=== PATIENT | female | born 1965 | race Caucasian/White ===

== ENCOUNTER → 2018-01-10 | Outpatient (CLI) | payer BC ==
--- NOTE | 2018-01-11 14:42 | MM ---
Reason for exam: screening (asymptomatic). Last mammogram was performed 4 years and 3 months ago. History: Taking hormonal contraceptives beginning at age 19. Physical Findings: A clinical breast exam by your physician is recommended on an annual basis and results should be correlated with mammographic findings. MG Screening Mammo w CAD Bilateral CC and MLO view(s) were taken. Prior study comparison: October 07, 2013, mammogram, performed at [facility]. October 03, 2013, mammogram, performed at [facility]. The breast tissue is heterogeneously dense. This may lower the sensitivity of mammography. Stable benign calcifications. There is no discrete abnormality. No significant changes when compared with prior studies. ASSESSMENT: Benign, BI-RAD 2 RECOMMENDATION: Routine screening mammogram of both breasts in 1 year.
== END | disposition home or self-care (01) ==
LOC: RADMAMWWP 11:47
PROVIDERS: ATTEND Family Medicine
DX: Z12.31 Encounter for screening mammogram for malignant neoplasm of breast (principal)
CPT/HCPCS: 77067

== ENCOUNTER → 2021-08-10 | Outpatient (CLI) | payer OTHER ==
--- NOTE | 2021-08-11 11:13 | MM ---
Reason for Exam: Screening (asymptomatic). Last mammogram was performed 3 year(s) and 7 month(s) ago. Patient History: Menarche at age 13. First Full-Term at age 30. Currently using Hormonal Contraceptives, starting at age 19. Risk Values: Radha 5 year model risk: 1.4%. NCI Lifetime model risk: 10.1%. Prior Study Comparison: 10/03/2013 Screening Mammogram, [facility]. 10/07/2013 Screening Mammogram, [facility]. 01/10/2018 Bilateral Screening Mammogram, [facility]. Tissue Density: The breast tissue is heterogeneously dense. This may lower the sensitivity of mammography. Findings: Analyzed By CAD. A few scattered benign-appearing punctate calcifications redemonstrated throughout both breasts. There is no suspicious group of microcalcifications or new suspicious mass in either breast. Overall Assessment: Benign, BI-RAD 2 Management: Screening Mammogram of both breasts in 1 year. A clinical breast exam by your physician is recommended on an annual basis and results should be correlated with mammographic findings. Electronically signed and approved by: Sai Fishman M.D.
== END | disposition home or self-care (01) ==
LOC: RADMAMWWP 08:05
PROVIDERS: ATTEND Family Medicine
DX: Z12.31 Encounter for screening mammogram for malignant neoplasm of breast (principal)
CPT/HCPCS: 77067

== ENCOUNTER → 2022-08-22 | Outpatient (CLI) | payer OTHER ==
[2022-08-22 20:54] LABS: Basophils # (A) 0.09 X 10*3/uL (0.00-0.10); Basophils % (A) 1.4 %; Eosinophils # (A) 0.19 X 10*3/uL (0.04-0.35); HCT 39.1 % (37.2-46.3); Lymphocytes # (A) 1.88 X 10*3/uL (0.90-5.00); Lymphocytes % (A) 29.4 %; MCHC 30.7 d/dL (32.0-37.0); MCV 91.1 FL (80.0-97.0); Mean Platelet Volume 10.8 FL (9.5-12.2); Monocytes # (A) 0.46 X 10*3/uL (0.20-1.00); Monocytes % (A) 7.2 %; NRBC Per 100 WBC 0 X 10*3/uL (0.00-0.01); Neutrophils # (A) 3.75 X 10*3/uL (1.80-7.70); Neutrophils % (A) 58.7 %; Platelet Count 228 X 10*3/uL (140-440); RBC 4.29 X 10*6/uL (4.10-5.20); RDW 14.1 % (11.5-14.5); WBC 6.39 X 10*3/uL (4.50-10.00)
== END | disposition home or self-care (01) ==
LOC: LABWHC1 12:45
PROVIDERS: ATTEND Obstetrics & Gynecology Obstetrics
DX: Z01.812 Encounter for preprocedural laboratory examination (principal); N92.0 Excessive and frequent menstruation with regular cycle; N92.6 Irregular menstruation, unspecified; D64.9 Anemia, unspecified
CPT/HCPCS: 36415; 85025

== ENCOUNTER 2022-08-25 07:43 | Day surgery (SDC) | payer OTHER ==
[2022-08-22 14:59] VITALS: BMI 31.8
[~2022-08-25 07:43] MED LIST: Pre Op ABX Message 1 EACH MISC MISCELLANE ONE
[2022-08-25] MEDS ORDERED: LACTATED RINGERS 1,000 ML IV SCH (07:49)
[2022-08-25] MEDS ORDERED: MIDAZOLAM 2 MG/2 ML VIAL IV PRN (07:49)
[2022-08-25] MEDS ORDERED: ONDANSETRON 4 MG/2 ML VIAL IVP ONE (07:49)
[2022-08-25] MEDS ORDERED: DEXAMETHASONE SOD PHOSPHATE 4 MG/ML 1 ML VIAL IV ONE (07:49)
[2022-08-25] MEDS ORDERED: SCOPOLAMINE 1 MG/72 HR PATCH TRANSDERM ONE (07:49)
[2022-08-25] MEDS ORDERED: HYDROmorphone 0.5 MG/0.5 ML SYRINGE IVP PRN (07:49)
[2022-08-25] MEDS ORDERED: fentaNYL (PF) 50 MCG/ML 2 ML AMP ONE (08:54)
[2022-08-25] MEDS ORDERED: MIDAZOLAM 2 MG/2 ML VIAL ONE (08:54)
[2022-08-25] MEDS ORDERED: KETOROLAC 15 MG/ML 1 ML VIAL ONE (08:54)
[2022-08-25] MEDS ORDERED: LIDOCAINE 2% INJ 20 MG/ML (2 ML VIAL) ONE (08:54)
[2022-08-25] MEDS ORDERED: PROPOFOL 10 MG/ML 20 ML VIAL IV ONE (08:54)
[2022-08-25 09:41] VITALS: TEMP 98.1
--- NOTE | 2022-08-25 09:41 | P.OP ---
Date of Procedure: 08/25/22 Preoperative Diagnosis: Menorrhagia, anemia Postoperative Diagnosis: Same Procedure(s) Performed: Hysteroscopy, dilation and curettage, endometrial ablation Anesthesia: spinal Surgeon: Debi Beal Estimated Blood Loss (ml): 5 Urine output (ml): 50 Pathology: none sent Condition: stable Disposition: PACU Indications for Procedure: Heavy menstrual bleeding with noted anemia, normal proliferative endometrium noted on endometrial biopsy Operative Findings: Normal uterine cavity was appreciated Description of Procedure: Patient was taken back to the operating suite where general anesthesia was obt ained without difficulty by the anesthesia department. She was prepped and draped in the normal sterile fashion in the dorsal lithotomy position. A regular catheter was used to drain the bladder of clear yellow urine. A weighted speculum was placed the posterior vaginal vault the anterior lip the cervix was visualized and grasped with a single-tooth tenaculum. The endocervical canal was then serially dilated. Hysteroscope was then placed through the cervix and toward the endometrial cavity. A normal appearing and Orly cavity was appreciated. Pictures were taken and the hysteroscope was removed. At this time a sharp curettage was performed until gritty texture was noted in all 4 quadrants. The specimens and sent to pathology for analysis. The NovaSure device was then opened and set to the appropriate mentions but this patient's cavity. A length of 4, width of 3.4, power of 75 for a total cycle length of 1 minute and 4 seconds. After cavity assessment was passed the cycle was allowed to complete. Afterwards the device was removed without difficulty. The single-tooth tenaculum was taken off the anterior lip of the cervix. Hemostasis was appreciated. All counts are correct 2. Patient tolerated procedure well and was taken the recovery room awake in stable condition.
[2022-08-25 09:47] VITALS: RESP 16
[2022-08-25 10:36] VITALS: BP 118/78; PULSE 68
== END 2022-08-25 11:10 | disposition home or self-care (01) ==
LOC: OR 07:43
PROVIDERS: ATTEND Obstetrics & Gynecology Obstetrics
DX: N85.00 Endometrial hyperplasia, unspecified (principal); N92.0 Excessive and frequent menstruation with regular cycle; D64.9 Anemia, unspecified
CPT/HCPCS: 58563; J2250; J1100; J2405; J3010; J1885; J2704; J2001; 88305